=== PATIENT | female | born 1985 | race Caucasian/White ===

== ENCOUNTER 2024-12-26 16:08 | Emergency (ER) | payer OTHER ==
[2024-12-26 16:13] VITALS: BP 117/53; PULSE 77; RESP 20; TEMP 98.5; BMI 21.9
[2024-12-26] MEDS ORDERED: ONDANSETRON 4 MG/2 ML VIAL ONE (17:19)
[2024-12-26 17:23] LABS: ABSOLUTE IMMATURE GRANULOCYTES 0.05 x10^3/uL (0.0-0.031); BASOPHILS # 0.02 x10^3/uL (0.01-0.08); EOSINOPHIL % 1.8 % (0.7-5.8); EOSINOPHILS # 0.22 x10^3/uL (0.04-0.36); MCHC 32.4 g/dl (32.2-35.5); MEAN CELL VOLUME 84.9 fl (79.4-94.8); MEAN PLT VOLUME 12.3 fl (9.4-12.3); MONOCYTE # 0.55 x10^3/uL (0.24-0.86); MONOCYTE % 4.4 % (4.7-12.5); RDW 14.3 % (12.1-16.8)
[2024-12-26] MEDS: ONDANSETRON 4 MG/2 ML VIAL IVPUSH ONE (17:25)
[2024-12-26] MEDS: SODIUM CHLORIDE 1,000 ML IV STA (17:25)
[2024-12-26 17:29] LABS: EPI CELLS >36 /uL (0-25.1); HYALINE CASTS 13 /uL (0-3.1); URINE APPEARANCE TURBID; URINE BACTERIA >9,000 /uL (0-1359); URINE BILIRUBIN NEGATIVE (NEGATIVE); URINE COLOR YELLOW; URINE GLUCOSE (UA) NEGATIVE (NEGATIVE); URINE KETONE NEGATIVE (NEGATIVE); URINE LEUK ESTERASE 3+ (NEGATIVE); URINE NITRITE NEGATIVE (NEGATIVE); URINE PROTEIN NEGATIVE (NEGATIVE); URINE RBC 11 /uL (0-23.9); URINE UROBILINOGEN 0.2 mg/dL (0.2-1.0); URINE WBC 643 /uL (0-25.8)
[2024-12-26 18:11] LABS: CO2 24.0 mmol/L (21-32); GLUCOSE,RANDOM 89.0 mg/dL (74-106)
[2024-12-26 18:14] LABS: CREATININE 0.4 mg/dL (0.55-1.3); SGOT/AST 13.0 U/L (15-37); SGPT/ALT 16.0 U/L (13-61)
[2024-12-26 18:15] LABS: TOT PROT 7.9 g/dl (6.4-8.2)
[2024-12-26 18:16] LABS: ALK PHOS 46.0 U/L (45-117)
[2024-12-26 19:01] LABS: HCV DIAGNOSTIC IN-HOUSE W/RFLX NON-REACTIVE (NONREACTIVE)
[2024-12-26 19:02] LABS: HIV INTERPRETATION NEGATIVE (NEGATIVE)
== END 2024-12-26 20:05 | disposition home or self-care (01) ==
LOC: JER 16:08
PROC: 3E033GC Introduction of Other Therapeutic Substance into Peripheral Vein, Percutaneous Approach (ICD-10-PCS; principal; 2024-12-26)
PROC: 3E0337Z Introduction of Electrolytic and Water Balance Substance into Peripheral Vein, Percutaneous Approach (ICD-10-PCS; 2024-12-26)
DX: O09.521 Supervision of elderly multigravida, first trimester (principal); O23.91 Unspecified genitourinary tract infection in pregnancy, first trimester; O26.891 Other specified pregnancy related conditions, first trimester; R42 Dizziness and giddiness; O21.9 Vomiting of pregnancy, unspecified; O99.891 Other specified diseases and conditions complicating pregnancy; H53.149 Visual discomfort, unspecified; Z3A.13 13 weeks gestation of pregnancy
CPT/HCPCS: 36415; 76801-TC; 80053; 81003; 84703; 85025; 86803; 87077; 87086; 87389; 87637-QW; 93005; 93010; 99285-25